=== PATIENT | male | born 1955 | race Caucasian/White ===

== ENCOUNTER 2016-05-11 11:56 | Day surgery (SDC) | payer BC ==
[2016-05-11] MEDS ORDERED: TRIAMCINOLONE ACETONIDE 40 MG/ML SUS ONE (12:53)
[2016-05-11 13:20] VITALS: BP 138/76; PULSE 56; RESP 20; TEMP 98.7; O2SAT 95
== END 2016-05-11 13:35 | disposition home or self-care (01) ==
LOC: SURG 11:56
PROVIDERS: ATTEND Nurse Anesthetist, Certified Registered
DX: M48.06 Spinal stenosis, lumbar region (principal); M47.896 Other spondylosis, lumbar region
CPT/HCPCS: 62323; 77003; J3300

== ENCOUNTER 2016-09-07 11:38 | Day surgery (SDC) | payer BC ==
[2016-09-07] MEDS ORDERED: TRIAMCINOLONE ACETONIDE 40 MG/ML SUS ONE (12:12)
[2016-09-07 12:42] VITALS: BP 138/80; PULSE 60; RESP 20; TEMP 97.7; O2SAT 97
== END 2016-09-07 12:55 | disposition home or self-care (01) ==
LOC: SURG 11:38
PROVIDERS: ATTEND Nurse Anesthetist, Certified Registered
DX: M48.06 Spinal stenosis, lumbar region (principal); M54.5 Low back pain
CPT/HCPCS: 62323; 77003; J3300

== ENCOUNTER 2018-04-03 08:41 | Day surgery (SDC) | payer BC ==
[~2018-04-03 08:41] MED LIST: PROPOFOL 500 MG/50 ML EMU IV ONE
[2018-04-03 11:03] VITALS: BP 127/83; PULSE 56; RESP 18; TEMP 97.4; O2SAT 96
== END 2018-04-03 11:42 | disposition home or self-care (01) ==
LOC: SURG 08:41
PROVIDERS: ATTEND Surgery
DX: Z12.11 Encounter for screening for malignant neoplasm of colon (principal); K57.32 Diverticulitis of large intestine without perforation or abscess without bleeding; D12.0 Benign neoplasm of cecum; D12.2 Benign neoplasm of ascending colon
CPT/HCPCS: 99001; J2704